=== PATIENT | female | born 1995 | race African-American/Black ===

== ENCOUNTER 2017-02-03 01:00 | Inpatient (IN) | payer OTHER ==
[~2017-02-03] VITALS: Ht 160 cm; Wt 151.0 kg
[~2017-02-03 01:00] MED LIST: ANTIVERT25 MG PO; BIRTH CONTROL PILL; MIRALAX17 GM PO; MOTRIN600 MG PO; NAPROSYN500 MG PO; SKELAXIN800 MG PO; TRAMADOL HCL50 MG PO; ZITHROMAX Z-PA250 MG PO
[2017-02-03 01:29] LABS: HEMATOCRIT 44.1 % (36.0-46.0); MCH 26.7 PG (29.0-34.0); MCHC 31.3 G/DL (30.0-36.0); MCV 85.5 FL (83-99); MEAN PLAT.VOLUME 8.9 uM^3 (9.5-12.4); PLATELET COUNT 438 K/uL (156-360); RBC DIS.WIDTH-CV 13.9 % (11.8-14.6); RBC DIS.WIDTH-SD 43.5 % (39-53); RED BLOOD COUNT 5.16 M/uL (3.80-5.20); WHITE BLOOD COUNT 8.6 K/uL (4.1-10.2)
[2017-02-03 01:39] LABS: CHLORIDE 105 mEq/L (99-109); POTASSIUM 3.9 mEq/L (3.7-5.4); SODIUM 140 mEq/L (136-147)
[2017-02-03 01:40] LABS: GLUCOSE 102 mg/dL (70-99)
[2017-02-03 01:42] LABS: ANION GAP 9 MEQ/L (2-14)
[2017-02-03 01:44] LABS: GFR ESTIMATE (CALCULATED) > 59 mL/min/; SERUM ETHYL ALCOHOL < 10 mg/dL
[2017-02-03 01:45] LABS: UREA NITROGEN (BUN) 10 mg/dL (9-23)
[2017-02-03 06:20] VITALS: BP 134/91
[2017-02-03 06:22] LABS: AMPHETAMINE NEGATIVE (500 ng/mL); BARBITURATES NEGATIVE (200 ng/mL); BENZODIAZEPINES NEGATIVE (150 ng/mL); COCAINE NEGATIVE (150 ng/mL); INTERNAL CONTROLS VALID? YES; METHADONE NEGATIVE (200 ng/mL); METHAMPHETAMINE NEGATIVE (500 ng/mL); OPIATES (MORPHINE) NEGATIVE (100 ng/mL); OXYCODONE NEGATIVE (100 ng/mL); PHENCYCLIDINE NEGATIVE (25 ng/mL); PROPOXYPHENE NEGATIVE (300 ng/mL); THC CANNABINOIDS NEGATIVE (50 ng/mL); TRICYCLIC ANTIDEPRESSANTS NEGATIVE (300 ng/mL)
[2017-02-03 14:54] VITALS: BP 114/66
[2017-02-04 09:59] VITALS: BP 115/55
[2017-02-04 15:10] VITALS: BP 131/77
[2017-02-05 07:27] VITALS: BP 111/62
[2017-02-05 15:49] VITALS: BP 148/67
[2017-02-05 20:36] VITALS: BP 137/84
[2017-02-06 07:57] VITALS: BP 137/77
[2017-02-06] MEDS ORDERED: WELLBUTRIN XL300 MG PO (10:25)
[2017-02-06] MEDS ORDERED: WELLBUTRIN XL150 MG PO (10:25)
== END 2017-02-06 12:47 | disposition home or self-care (01) | DRG 881 ==
LOC: EME 01:00 → EDOF 04:02 → 1WEST 04:02
DX: F43.21 Adjustment disorder with depressed mood (principal); F32.1 Major depressive disorder, single episode, moderate; R45.851 Suicidal ideations; E66.01 Morbid (severe) obesity due to excess calories; Z68.43 Body mass index [BMI] 50.0-59.9, adult; Z72.0 Tobacco use
CPT/HCPCS: 80048; 85027; 90839; 97150 GO; 97165 GO; 99281; 99284; G0480; Q0177

== ENCOUNTER 2017-08-18 17:09 | Emergency (ER) | payer OTHER ==
[~2017-08-18] VITALS: Ht 160 cm; Wt 156.3 kg
[~2017-08-18 17:09] MED LIST changes: +WELLBUTRIN XL150 MG PO; +WELLBUTRIN XL300 MG PO
[2017-08-18 17:44] LABS: HEMATOCRIT 40.9 % (36.0-46.0); MCH 26.4 PG (29.0-34.0); MCHC 31.8 G/DL (30.0-36.0); MEAN PLAT.VOLUME 9.1 uM^3 (9.5-12.4); PLATELET COUNT 403 K/uL (156-360); RBC DIS.WIDTH-SD 45.3 % (39-53); RED BLOOD COUNT 4.93 M/uL (3.80-5.20); WHITE BLOOD COUNT 6.2 K/uL (4.1-10.2)
[2017-08-18 17:51] LABS: CHLORIDE 109 mEq/L (99-109); SODIUM 140 mEq/L (136-147)
[2017-08-18 17:53] LABS: GLUCOSE 82 mg/dL (70-99)
[2017-08-18 17:55] LABS: ANION GAP 5 MEQ/L (2-14)
[2017-08-18 17:56] LABS: SERUM ETHYL ALCOHOL < 10 mg/dL
[2017-08-18 17:57] LABS: GFR ESTIMATE (CALCULATED) > 59 mL/min/
[2017-08-18 17:58] LABS: UREA NITROGEN (BUN) 9 mg/dL (9-23)
[2017-08-18 17:59] LABS: ADD MEDTOX COMMENT Y; AMPHETAMINE NEGATIVE (500 ng/mL); BARBITURATES NEGATIVE (200 ng/mL); BENZODIAZEPINES PRESUMPTIVE POSITIVE (150 ng/mL); COCAINE NEGATIVE (150 ng/mL); INTERNAL CONTROLS VALID? YES; METHADONE NEGATIVE (200 ng/mL); METHAMPHETAMINE NEGATIVE (500 ng/mL); OPIATES (MORPHINE) NEGATIVE (100 ng/mL); OXYCODONE NEGATIVE (100 ng/mL); PHENCYCLIDINE NEGATIVE (25 ng/mL); PROPOXYPHENE NEGATIVE (300 ng/mL); THC CANNABINOIDS PRESUMPTIVE POSITIVE (50 ng/mL); TRICYCLIC ANTIDEPRESSANTS NEGATIVE (300 ng/mL)
[2017-08-18] MEDS ORDERED: KLONOPIN0.5 M1 PO (18:13)
[2017-08-18] MEDS ORDERED: MINIPRESS1 MG PO (18:14)
[2017-08-18] MEDS ORDERED: PROZAC40 MG PO (18:14)
[2017-08-18] MEDS ORDERED: ATARAX,VISTARIL25 MG PO (18:15)
[2017-08-18] MEDS ORDERED: ABILIFY10 MG PO (18:15)
[2017-08-18] MEDS ORDERED: ALBUTEROL SULFAT2 MG PO (18:16)
[2017-08-18] MEDS ORDERED: TOPAMAX25 MG PO (18:16)
[2017-08-18 18:30] LABS: BENZODIAZEPINES QUANT VALUE 0 NG/ML; BENZODIAZEPINES, URINE SCREEN Negative (200 ng/mL)
[2017-08-19 11:38] VITALS: BP 126/82
== END 2017-08-19 11:39 ==
LOC: EME 17:09
DX: F33.2 Major depressive disorder, recurrent severe without psychotic features (principal); R45.851 Suicidal ideations; F12.10 Cannabis abuse, uncomplicated; E11.9 Type 2 diabetes mellitus without complications; J45.909 Unspecified asthma, uncomplicated; Z72.0 Tobacco use
CPT/HCPCS: 80048; 84999; 85027; 90837; 99281; 99285; G0480

== ENCOUNTER 2018-05-24 15:21 | Emergency (ER) | payer OTHER ==
[~2018-05-24] VITALS: Ht 160 cm; Wt 158.3 kg
[~2018-05-24 15:21] MED LIST changes: +ABILIFY10 MG PO; +ALBUTEROL SULFAT2 MG PO; +ATARAX,VISTARIL25 MG PO; +KLONOPIN0.5 M1 PO; +MINIPRESS1 MG PO; +PROZAC40 MG PO; +TOPAMAX25 MG PO
[2018-05-24] MEDS ORDERED: PROVENTIL,2.5 MG/3 M IH (16:43)
[2018-05-24] MEDS ORDERED: PREDNISONE20 MG PO (16:44)
[2018-05-24 17:07] VITALS: BP 117/74
== END 2018-05-24 17:09 | disposition home or self-care (01) ==
LOC: EME 15:21 → EXP 15:21
DX: J45.909 Unspecified asthma, uncomplicated (principal); R06.02 Shortness of breath; E11.9 Type 2 diabetes mellitus without complications; F32.9 Major depressive disorder, single episode, unspecified; Z88.2 Allergy status to sulfonamides; Z87.891 Personal history of nicotine dependence
CPT/HCPCS: 71046; 93005; 94640; 99281; 99284; J7512